=== PATIENT | male | born 1975 | race Caucasian/White ===

== ENCOUNTER 2020-05-30 04:11 | Emergency (ER) | payer BC ==
[2020-05-30] MEDS ORDERED: Fluorescein 1 MG Ophth Strip EYERT ONE (04:30)
[2020-05-30] MEDS ORDERED: Erythromycin Base 0.5% Ophth Oint 1 GM Tube EYERT ONE (04:37)
--- NOTE | 2020-05-30 04:45 | EDM.PDOC ---
ED HPI GENERAL MEDICAL PROBLEM - General Chief Complaint: Eye Problems Stated Complaint: RT EYE PAIN Time Seen by Provider: 05/30/20 04:15 Source of Information: Reports: Patient History Limitations: Reports: No Limitations - History of Present Illness INITIAL COMMENTS - FREE TEXT/NARRATIVE: This is a 45-year-old male. Apparently he was driving today and maybe had his window down maybe he did not but he got a piece of dirt he thinks into his right eye. And about 5 PM today. It is been bothering him since that time and he has been rubbing it and the eye is painful and red. He comes to the ER for evaluation. He does not think it is metal that is in his eye. Right Eye Pain Score (Numeric/FACES): 3 - Related Data Allergies Allergy/AdvReac Type Severity Reaction Status Date / Time No Known Allergies Allergy Verified 05/30/20 04:21 Home Meds: Home Meds . [No Known Home Meds] 05/30/20 [History] Past Medical History - Past Health History Medical/Surgical History: Denies Medical/Surgical History Social & Family History - Family History Family Medical History: Noncontributory - Tobacco Use Smoking Status *Q: Never Smoker - Caffeine Use Caffeine Use: Reports: None - Recreational Drug Use Recreational Drug Use: No ED ROS GENERAL - Review of Systems Review Of Systems: See Below Constitutional: Denies: Fever, Chills HEENT: Reports: Eye Discharge, Eye Pain Respiratory: Reports: No Symptoms Cardiovascular: Reports: No Symptoms Endocrine: Reports: No Symptoms GI/Abdominal: Reports: No Symptoms : Reports: No Symptoms Musculoskeletal: Reports: No Symptoms Skin: Reports: No Symptoms Neurological: Reports: No Symptoms Psychiatric: Reports: No Symptoms Hematologic/Lymphatic: Reports: No Symptoms ED EXAM GENERAL W FULL EYE - Physical Exam Exam: See Below Exam Limited By: No Limitations General Appearance: Alert, WD/WN, Mild Distress Eye Exam: Right Eye: Foreign Body (There is noted to be a foreign body on the right cornea around the 7 o'clock position at the periphery.), Bilateral Eye: PERRL Eyelids: Right: Other (His right eyelids are somewhat puffy from him rubbing) Conjunctiva & Sclera: Right: Injected Cornea Exam: Right: Foreign Body (There is a small what appears to be dirt-like foreign body attached to his cornea at the 7 o'clock position. I was able to take the back of a Q-tip and rub it off the cornea and pick it up with a Q-tip head.), Examined with Flourescein (Has an abrasion where he had that foreign body stuck to his cornea but I do not see any additional foreign body on that cornea now) Extraocular Movements: Bilateral: Intact Pupils: Normal Accommodation Pupillary Size: Bilateral: 3 mm Pupillary Reaction: Bilateral: Brisk Anterior Chamber: Right: Normal Appearance Ears: Normal External Exam Nose: Normal Inspection Throat/Mouth: Normal Voice, No Airway Compromise Head: Normocephalic Neck: Supple Respiratory/Chest: No Respiratory Distress Back Exam: Full Range of Motion Extremities: Normal Inspection, Normal Range of Motion Neurological: Alert, Oriented Psychiatric: Normal Affect, Normal Mood Skin Exam: Warm, Dry Course - Vital Signs Last Recorded V/S: Last Vital Signs Temp 97.0 F 05/30/20 04:16 Pulse 78 05/30/20 04:16 Resp 13 05/30/20 04:16 BP 142/102 H 05/30/20 04:16 Pulse Ox 99 05/30/20 04:16 - Orders/Labs/Meds Orders: Active Orders 24 hr Category Date Time Status Communication Order [RC] STAT Care 05/30/20 04:37 Ordered Meds: Medications Discontinued Medications Generic Name Dose Route Start Last Admin Trade Name Freq PRN Reason Stop Dose Admin Erythromycin 1 gm 05/30/20 04:37 Erythromycin 0.5% Ophth Oint EYERT 05/30/20 04:38 ONETIME ONE Fluorescein Sodium 1 mg 05/30/20 04:30 05/30/20 04:34 Ful-Jennifer EYERT 05/30/20 04:31 1 mg ONETIME ONE Administration Departure - Departure Time of Disposition: 04:43 Disposition: Home, Self-Care 01 Condition: Good Clinical Impression: Foreign body of right cornea Qualifiers: Encounter type: initial encounter Qualified Code(s): T15.01XA - Foreign body in cornea, right eye, initial encounter Right corneal abrasion Qualifiers: Encounter type: initial encounter Qualified Code(s): S05.01XA - Injury of conjunctiva and corneal abrasion without foreign body, right eye, initial encounter Conjunctivitis, right eye Qualifiers: Conjunctivitis type: acute Acute conjunctivitis type: unspecified Qualified Code(s): H10.31 - Unspecified acute conjunctivitis, right eye - Discharge Information *PRESCRIPTION DRUG MONITORING PROGRAM REVIEWED*: Not Applicable *COPY OF PRESCRIPTION DRUG MONITORING REPORT IN PATIENT [place]: Not Applicable Instructions: Eye Foreign Body, [id number], Corneal Abrasion, [id number] Referrals: PCP,None [Primary Care Provider] - Additional Instructions: You must wear the eye patch faithfully for the next 24 hours, tomorrow get some Artificial Tears from [employer] as a lubricant and then Monday morning when you wake up take the patch off and start using the drops. Do not rub your right eye once the patch is off otherwise you will continue to irritate that cornea. I would advise you to follow-up with your eye doctor this coming week for recheck and further inspection, return to the ER if needed Sepsis Event Note (ED) - Evaluation Sepsis Screening Result: No Definite Risk - Focused Exam Vital Signs: Vital Signs Temp Pulse Resp BP Pulse Ox 05/30/20 04:16 97.0 F 78 13 142/102 H 99 - My Orders Last 24 Hours: My Active Orders 05/30/20 04:37 Communication Order [RC] STAT - Assessment/Plan Last 24 Hours: My Active Orders 05/30/20 04:37 Communication Order [RC] STAT
== END 2020-05-30 04:50 | disposition home or self-care (01) ==
LOC: JD.ED 04:11
DX: T15.01XA Foreign body in cornea, right eye, initial encounter (principal); H10.9 Unspecified conjunctivitis; X58.XXXA Exposure to other specified factors, initial encounter
CPT/HCPCS: 99283; A9270; 65220; 99282